=== PATIENT | male | born 1980 | race Caucasian/White ===

== ENCOUNTER 2022-05-16 13:41 | Emergency (ER) | payer OTHER ==
[~2022-05-16] VITALS: Ht 190.5 cm; Wt 81.6 kg
== END 2022-05-16 15:12 | disposition home or self-care (01) ==
LOC: ER 13:41
DX: M71.521 Other bursitis, not elsewhere classified, right elbow (principal); S50.01XA Contusion of right elbow, initial encounter; W18.30XA Fall on same level, unspecified, initial encounter; Y93.9 Activity, unspecified; Y92.89 Other specified places as the place of occurrence of the external cause; Y99.9 Unspecified external cause status

== ENCOUNTER 2024-08-24 13:22 | Outpatient (CLI) | payer OTHER | END 2024-08-24 13:27 | disposition home or self-care (01) | LOC: RAD 13:22 | PROVIDERS: ATTEND Orthopaedic Surgery | DX: S62.111A Displaced fracture of triquetrum [cuneiform] bone, right wrist, initial encounter for closed fracture (principal) ==